=== PATIENT | male | born 1985 | race Caucasian/White ===

== ENCOUNTER 2023-01-03 12:02 | Emergency (ER) | payer OTHER ==
[2023-01-03 12:23] VITALS: BP 131/71; O2SAT 98
--- NOTE | 2023-01-03 13:13 | XRAY Report ---
PROCEDURE: Hip w/Pelvis 2-3V LT INDICATIONS: pain TECHNIQUE: AP pelvis with lateral view(s) of the left hip(s). COMPARISON: None. FINDINGS: Bones: No fractures or dislocations. No evidence of avascular necrosis of femoral head. No suspiciou s bony lesions. Soft tissues: No suspicious soft tissue calcifications or masses. IMPRESSION: No acute left hip fracture or dislocation. No evidence of avascular necrosis. Reviewed by: Isaac Arauz MD on 01/03/2023 1:11 PM PST Approved by: Isaac Arauz MD on 01/03/2023 1:11 PM PST Station ID: [id number]
--- NOTE | 2023-01-03 14:10 | ED Physician Documentation ---
PD HPI LOWER EXT INJURY - Stated complaint Stated Complaint: LT HIP PX - Chief complaint Chief Complaint: Ext Problem - History obtained from History obtained from: Patient - History of Present Illness PD HPI LOW EXT INJURY LOCATION: Left, Hip - Additional information Additional information: Patient presents with left hip pain for the last 4 months. No known injury. He has been seen by his [place] PCP and started on physical therapy and ibuprofen but states it is not getting better. 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 Has not noticed any swelling, no erythema, no numbness or tingling in the groin or down the leg. He has not had any new injuries, no falls or trauma to the area. Has not had any swelling in the leg, no back issues, no bowel or bladder changes. No fever or chills. PD PAST MEDICAL HISTORY - Past Medical History Past Medical History: Yes Psych: Anxiety - Past Surgical History Past Surgical History: Yes General: Other Ortho: Other - Allergies Allergies/Adverse Reactions: Allergies Allergy/AdvReac Type Severity Reaction Status Date / Time No Known Drug Allergies Allergy Verified 01/03/23 12:10 - Social History Does the pt smoke?: No Smoking Status: Former smoker Does the pt drink ETOH?: No Does the pt have substance abuse?: No - Immunizations Immunizations are current?: Yes - POLST Patient has POLST: No PD ED PE NORMAL - Vitals Vital signs reviewed: Yes - General General: Alert and oriented X 3 - Back Back: No CVA TTP, No spinal TTP - Derm Derm: Normal color, Warm and dry, No rash - Extremities Extremities: No deformity, No tenderness to palpate, Normal ROM s pain, No edema, No calf tenderness / cord Results - Vitals Vitals: Vital Signs - 24 hr 01/03/23 12:11 Temperature 36.5 C Heart Rate 73 Respiratory 16 Rate Blood Pressure 131/71 H O2 Saturation 98 Oxygen O2 Source Room air - Rads (name of study) No standard instances Relevant Findings:: Final report received, See rad report PD Medical Decision Making - ED course Complexity details: reviewed results, re-evaluated patient, considered differential, d/w patient ED course: 37-year-old male presented with left hip pain as described in HPI. It is been present for about 4 months, comes and goes, not relieved by PT and ibuprofen. The patient has seen his PCP for this and I encouraged him to follow back up with his PCP, he may need a referral to Ortho or MRI likely before that. His x- ray today is negative and there is no indication for emergent MRI today. Other no signs of infection or swelling. The patient may have a labral tear or a trochanteric bursitis or another intra-articular issue that is causing him the pain but it does not appear to be an emergent condition at this time. Patient was encouraged to try to rest the hip for a week or 2 if possible and a note was provided for work, he can take ibuprofen and Tylenol, and we discussed ongoing physical therapy exercises. Return precautions reviewed if any new or worsening symptoms. Departure - Departure Disposition: 01 Home, Self Care Clinical Impression: Left hip pain Condition: Good Instructions: Exercise Lower Body Hip Flexor, Trochanteric Bursitis, Iliotibial Band Stretch Comments: The cause of your hip pain is not clear. Your xray is negative and there are no signs of bony injury or dislocation. There are many hip problems that are not seen on xray such as labral injury, trochanteric bursitis, and chronic use injuries. You may need to have an MRI but this does not need to be done emerg ency and can be scheduled as an outpatient through your primary doctor as needed. Continue physical therapy. If there is the possibility of you doing "light duty" this may be helpful for a period of time to allow your hip to rest and heal. Forms: PCP List, Activity restrictions Discharge Date/Time: 01/03/23 14:15
== END 2023-01-03 14:15 | disposition home or self-care (01) ==
LOC: ED 12:02
DX: M25.552 Pain in left hip (principal); Z87.891 Personal history of nicotine dependence
CPT/HCPCS: 99283

== ENCOUNTER 2023-01-18 10:16 | Outpatient (CLI) | payer OTHER ==
--- NOTE | 2023-01-18 14:50 | MRI Report ---
PROCEDURE: HIP WO - LT INDICATIONS: LEFT HIP PAIN TECHNIQUE: Noncontrast coronal T1 spin echo and STIR through the bony pelvis. Coronal and axial T2 fast spin ec ho with fat saturation, sagittal T1 spin echo, and oblique axial T2 fast spin echo with fat saturatio n through the hip. COMPARISON: Left hip radiograph dated 01/03/2023. FINDINGS: Image quality: Excellent. Bones and joints: There is no marrow edema. No intraosseous lesions or fractures. No avascular necr osis of the femoral heads. The visualized lower lumbar spine appears normally aligned. Tendons: Low-grade partial-thickness involving distal left gluteus medius tendon at its insertion on greater trochanter is seen. Distal left gluteus minimus tendinosis is also seen. The iliopsoas tendon appears intact, without adjacent bursal fluid collections. Mild tendinosis involving origins of hams tring tendons at ischial tuberosity. Labrum and cartilage: r there is fraying of superior anterior labrum at 12 to 1:00 position suggesti ve of subtle superior anterior labral tear.. Cartilage surface of the femoral head appears of normal thickness. The alpha angle of the femur is within normal limits at less than 55 degrees. Soft tissues: Visualized muscles demonstrate normal bulk and internal signal. The proximal sciatic neurovascular bundle appears normal adjacent to the hamstring tendons. No free pelvic fluid. Bladde r wall thickness is normal. Genitourinary structures and bowel loops appear normal where visualized. IMPRESSION: 1. Finding is concerning for subtle superior anterior left hip labral tear at 12 to 1:00 position. 2. No marrow edema. No fracture or dislocation. No evidence of avascular necrosis of femoral head. 3. Low-grade partial-thickness involving distal left gluteus medias tendon at its insertion on greate r trochanter. Mild distal left gluteus minimus tendinosis. Tendinosis involving hamstring tendon orig ins at ischial tuberosity. Reviewed by: Isaac Arauz MD on 01/18/2023 2:49 PM PST Approved by: Isaac Arauz MD on 01/18/2023 2:49 PM PST Station ID: [id number]
== END 2023-01-18 10:17 | disposition home or self-care (01) ==
LOC: DI 10:16
PROVIDERS: ATTEND Nurse Practitioner Family
DX: M25.552 Pain in left hip (principal); M67.854 Other specified disorders of tendon, left hip

== ENCOUNTER 2023-03-04 10:05 | Outpatient (CLI) | payer OTHER ==
--- NOTE | 2023-03-04 10:40 | Sleep Patient Instructions ---
Sleep Center Visit Summary - Patient Visit Information Reason for Visit: Initial consult for evaluation of sleep disordered breathing and other sleep issues. - Patient Instructions Instructions Attached: Sleep Study Additional Instructions: You will be completing a sleep study, either an in-lab polysomnography (PSG) or home sleep study (HST). You will follow-up in the sleep care office after the sleep study is completed to hear the results and talk about therapy, if needed. You will be called by our office staff to schedule this appointment, but you may contact us with any questions. - Clinic Information Contact: [facility] [address] [place] [address] [email or web address] T: [phone]
--- NOTE | 2023-03-04 10:45 | SLEEP CARE CONSULTATION ---
Information from patient questionnaire entered by Anatoly Cordoba. I have reviewed and concur with the information entered by Anatoly Cordoba. This document represents the service I personally performed and the decisions made by me, Lisbet Wagner ARNP. History of Present Illness Service Date and Time: 03/04/2023 1005 Reason for Visit: New patient Chief Complaint: reports: Unrefreshed sleep, Snoring, Observed pauses in breathing, Fatigue, Frequent awakenings at night Date of Onset: 14 years Usual bedtime: 2100 Time it takes to fall asleep: I don't know Snores at night: Yes Observed to quit breathing while asleep: Yes Sleeps alone due to snoring: No Number of times waking at night: 1-4 Reasons for waking at night: reports: Other (Unknown reason). denies: Choking, Snoring, Gasping for air Toss, Turn, or Twitch while sleeping: Yes Recalls having dreams: Yes (Yes and no) Usually gets out of bed at: Between 0530 - 0630 Feels refreshed in the morning: No (feels groggy) Morning headache: No Sleepy or fatigued during the day: Yes (has unintentional naps when he is off, 1-2 times on weekends) Ever fallen asleep while driving: No Takes day naps: No Dreams during day naps: Yes (Yes and no) Prior sleep studies: No Additional HPI information: I had the pleasure of seeing PEARL QUIROZ today regarding the possibility of him having a sleep disorder. His current complaints are fatigue, frequent night awakenings, observed pauses in breathing, snoring and unrefreshed sleep. He says his and other roommate has told him that he stopped breathing at night and loud snoring. His tries to get to sleep before him to be able to get to sleep. He says he is never fully rested when he gets up in the morning and it takes a while to feel awake in the mornings. He states he has been on to have some unintentional naps on the weekends but never falls asleep at work. 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 Patient is and lives in [place]. Have you smoked in the past 12 months: Yes (Vapes daily) Cigarettes per day (20/pack): 5 Years of smokin Quit date: 2022 Smoking Pack Years: 2.0 Alcohol use: No Caffeine use: Yes Caffeine amount and frequency: 2-4 cups coffee daily Family History Family history of sleep disordered breathing: No Allergies and Home Medications Known drug allergies: No Drug allergies reviewed: Yes Home medication list reviewed: Yes Allergy and home medication list: Allergies No Known Drug Allergies Allergy (Verified 03/02/23 14:06) Medications: Sertraline 150 mg daily, at night Bupropion XL 300 mg, in morning daily Hydroxyzine 10 mg, prn Meloxicam 15 mg, 1/2 pill, daily Review of Systems Weight gain over past 5 years: 20 Cardiovascular: denies: high blood pressure Gastrointestinal: denies: heartburn Neurological: denies: headaches Psychiatric: reports: anxiety Ear/Nose/Throat: reports: wisdom teeth removed. denies: tonsillectomy Musculoskeletal: reports: other (Hip) Physical Exam Vital signs obtained and entered by: Lisbet Edmondson NP Blood Pressure: 149/85 Cuff size: regular (right arm) Heart Rate: 73 O2 Saturation: 98 Height: 5 ft 11 in Weight: 230 lb 3.2 oz Body Mass Index: 32.1 BMI Classification: Obese Neck circumference: 16.5 (inches) Mouth and throat: narrow oropharynx Soft palate: long Hard palate: normal Uvula: normal Uvula visualization: 25% Mallampati Class III Tongue: enlarged in size with teeth james on lateral edges Tonsils: 1+ Neck: normal w/o lymphadenopathy or thyromegaly Heart: regular rate and rhythm Lungs: clear bilaterally Impression and Plan 1. Suspected Obstructive Sleep Apnea-Hypopnea Syndrome, as suggested by a history of loud and irregular snoring, observed cessation of breath while asleep, frequent awakening during the night, unrefreshed sleep, and excessive daytime sleepiness. Narrow oropharynx and obesity are common predisposing factors for obstructive sleep apnea-hypopnea syndrome. I recommend proceeding to polysomnography to confirm the diagnosis and to assess severity. If the patient has significant sleep disordered breathing, a manual CPAP titration study will also be performed to find the optimal treatment pressure. I informed the patient of what the sleep studies involve and after some discussion, obtained agreement to proceed. The pathophysiology of obstructive sleep apnea-hypopnea syndrome was discussed with the patient and health risks of cardiovascular and cerebrovascular disease if not treated. Risks of drowsy driving discussed in detail and patient advised to avoid long distance driving and to focus puller at the first sign of drowsiness. Patient agreed to plan. * Schedule polysomnography * Avoid long distance driving or driving when feeling sleepy. * Avoid alcohol, sedative and muscle relaxant around bedtime. * Attempt to lose weight. * Review instructions provided by trained office staff on how to prepare for the sleep study. * Return for follow-up after sleep study completed. Counseling Topics: Weight loss health impact Plan: PSG/HST Visit Type: In Office Location of Provider: Office Time Spent with Patient (minutes): 31 Provider Statement: I spent 100% of the Face to Face Visit with the patient with greater than 50% spent counseling the patient and coordination of care.
[2023-03-04 10:50] VITALS: BP 149/85; O2SAT 98
== END 2023-03-04 10:06 | disposition home or self-care (01) ==
LOC: SC 10:05
PROVIDERS: ATTEND Nurse Practitioner Family
DX: R06.83 Snoring (principal); G47.8 Other sleep disorders; R06.81 Apnea, not elsewhere classified; G47.10 Hypersomnia, unspecified; R53.83 Other fatigue; E66.9 Obesity, unspecified; Z68.32 Body mass index [BMI] 32.0-32.9, adult; F17.290 Nicotine dependence, other tobacco product, uncomplicated
CPT/HCPCS: 99203; 99212

== ENCOUNTER 2023-03-15 19:32 | Outpatient (CLI) | payer OTHER | END 2023-03-15 19:33 | disposition home or self-care (01) | LOC: SC 19:32 | PROVIDERS: ATTEND Nurse Practitioner Family | DX: G47.8 Other sleep disorders (principal) | CPT/HCPCS: 95810 ==

== ENCOUNTER 2023-03-22 08:47 | Outpatient (CLI) | payer OTHER ==
--- NOTE | 2023-03-22 09:30 | Sleep Patient Instructions ---
Sleep Center Visit Summary - Patient Visit Information Reason for Visit: Sleep study follow-up - Patient Instructions Instructions Attached: CPAP Additional Instructions: You are being started on CPAP therapy with pressure setting at 4-15 cmH2O. You will need to call the sleep care office to set up your follow up once you have your APAP machine and we will schedule a visit to check compliance and response to therapy at that time. You may call the office with any concerns about pressure feeling too low or too much for adjustment, if needed. You should contact DME supplier for any questions or concerns about mask or equipment. Please call office to schedule a follow up appointment in the sleep care office one month after obtaining new device. - Clinic Information Contact: [facility] [address] [place] [address] [email or web address] T: [phone]
--- NOTE | 2023-03-22 09:33 | SLEEP CARE CONSULTATION ---
Information from patient questionnaire entered by Maegan Flor. I have reviewed and concur with the information entered by Maegan Flor. This document represents the service I personally performed and the decisions made by me, Lisbet Wagner ARNP. History of Present Illness Service Date and Time: 03/22/2023 08 Initial [place] Sleepiness Scale score: 14 Current [place] Sleepiness Scale score: 13 Additional HPI information: PEARL QUIROZ returns for follow up and results of the recently performed polysomnography. The sleep study showed mild upper airway resistance syndrome with an average AHI of 3.1 with RDI 11.2 and merly oxygen saturation of 89%. I explained the pathophysiology behind obstructive sleep apnea. We then spent quite a bit of time discussing different treatment options. For mild obstructive sleep apnea, surgery and oral appliance are alternatives to nasal CPAP therapy but in moderate or severe cases, nasal CPAP is the most effective and reliable treatment. I reviewed the impact of weight changes on sleep apnea and strongly recommended losing weight. After some discussion, the patient opted to go with the nasal CPAP therapy. Nasal autoCPAP set at 4-15 cmH20 will be ordered with rationale explained. A manual titration study will be ordered if unable to find optimal pressure with office adjustments. I explained how CPAP machine works and what to expect when using the machine. Using CPAP every night in order to get used to it was emphasized. Patient advised to put CPAP mask on before getting into bed so as not to fall asleep without CPAP. To assist acclimation to CPAP use, it could also be used for a short time during day while reading or watching TV. The patient was instructed to call the CPAP supplier to discuss any mechanical problem that may occur. If the mask given is uncomfortable or is difficult to keep on through the night even with adjustment, contact the CPAP supplier as many will replace with another mask style if notified before 30 days. If snoring or perceives is not getting enough air or too much air from the machine, notify this office. Patient does not drink alcohol. Patient was cautioned about risks of drowsy driving until sleepiness symptoms resolve. Patient denies drowsy driving. Sleep Study - Results Type of Sleep Study: Polysomnography (COMPLETED 03/15/23) Prior sleep studies: No Polysomnography/Home Sleep Study results: IMPRESSION: The quality of the study is good. The patient had normal sleep efficiency. The sleep architecture was abnormal for sleep fragmentation and reduced amount of time spent in REM and slow wave sleep (N3). Respiratory monitoring showed evidence of upper airway resistance syndrome (AHI = 3.1; RDI = 11.2) associated with frequent arousals, oxyhemoglobin desaturation and minimal hypoxia (merly oxygen saturation of 89%). The respiratory events occurred almost exclusively during supine sleep (supine AHI = 6.9; non-supine = 1.55). Snore was moderate in intensity. There was no significant periodic leg movement of sleep. Cardiac rhythm was normal sinus rhythm without significant arrhythmia. No abnormal behavior (parasomnia) observed during the night. Allergies and Home Medications Known drug allergies: No Drug allergies reviewed: Yes Home medication list reviewed: Yes (no changes) Allergy and home medication list: Allergies No Known Drug Allergies Allergy (Verified 03/21/23 12:55) Review of Systems Review of systems same as previous: Yes (no changes) Physical Exam Vital signs obtained and entered by: LISBET WHITTAKER-Dimas Blood Pressure: 137/75 Cuff size: regular (left arm) Heart Rate: 75 O2 Saturation: 98 Height: 5 ft 11 in Weight: 235 lb 9.6 oz Body Mass Index: 32.8 BMI Classification: Obese Impression and Plan 1. Upper Airway Resisitance Syndrome, mild, with lowest oxygen saturation of 89%. Obviously this is the cause of the patients symptoms of unrefreshed sleep, and excessive daytime sleepiness. Positive pressure therapy could benefit anxiety. As mentioned above, the patient will be started on nasal autoCPAP therapy with pressure set at 4-15 cmH2O. A manual titration study will be completed if unable to find optimal treatment pressure with office adjustments. Compliance guidelines also reviewed. A copy of compliance guidelines will be given for reference at check out. Because the apnea is more severe supine, I instructed to avoid sleeping supine using pillow positioning until able to start CPAP use. 2. Obesity, unspecified. Currently patients BMI is 32.8. Obesity increases the risk of apnea, CPAP pressure requirements and overall health risks especially cardiovascular and diabetes. Thus patient is advised to lose weight. * Nasal auto CPAP therapy, pressure at 4-15 cmH2O. * Attempt to lose weight. * Avoid alcohol consumption near bedtime. * Avoid supine sleep until using CPAP. * The patient is again cautioned about driving until sleepiness completely resolves. * Return one month after CPAP obtained. I will assess response to therapy and compliance at that time. Counseling Topics: Sleeping position, Weight loss health impact Prescriptions: Auto CPAP Visit Type: In Office Time Spent with Patient (minutes): 23 Provider Statement: I spent 100% of the Face to Face Visit with the patient with greater than 50% spent counseling the patient and coordination of care.
[2023-03-22 09:35] VITALS: BP 137/75; O2SAT 98
== END 2023-03-22 08:48 | disposition home or self-care (01) ==
LOC: SC 08:47
PROVIDERS: ATTEND Nurse Practitioner Family
DX: G47.8 Other sleep disorders (principal); E66.9 Obesity, unspecified; Z68.32 Body mass index [BMI] 32.0-32.9, adult
CPT/HCPCS: 99212; 99213

== ENCOUNTER 2023-05-10 08:00 | Outpatient (CLI) | payer OTHER ==
--- NOTE | 2023-05-10 20:53 | XRAY Report ---
PROCEDURE: Hip 2 View LT INDICATIONS: LEFT HIP PAIN TECHNIQUE: 2 view(s) of the hip were acquired. COMPARISON: 01/03/2023 FINDINGS: Bones: No fractures or dislocations. No suspicious bony lesions. The visualized pelvic ring appear s intact. Soft tissues: No suspicious soft tissue calcifications or masses. IMPRESSION: Unremarkable hip radiographs Reviewed by: Hunter Schilling MD on 05/10/2023 7:51 PM AKDT Approved by: Hunter Schilling MD on 05/10/2023 7:51 PM AKDT Station ID: [id number]
== END 2023-05-10 23:59 | disposition home or self-care (01) ==
LOC: DI.WOS 08:00
PROVIDERS: ATTEND Physician Assistant Surgical
DX: M25.552 Pain in left hip (principal)

== ENCOUNTER 2023-05-11 15:08 | Outpatient (CLI) | payer OTHER ==
--- NOTE | 2023-05-11 15:44 | Sleep Patient Instructions ---
Sleep Center Visit Summary - Patient Visit Information Reason for Visit: First compliance follow-up - Patient Instructions Additional Instructions: You were here for follow up of CPAP therapy. You will be continued on CPAP therapy with pressure at 8-10 cmH2O. Please let us know if the pressure change is uncomfortable and we can make further adjustments of the pressure. You should follow up with sleep care in 1-2 months. You may contact us sooner for any questions or concerns. - Clinic Information Contact: [facility] [address] [place] [address] [email or web address] T: [phone]
--- NOTE | 2023-05-11 15:51 | SLEEP CARE CONSULTATION ---
Information from patient questionnaire entered by Jaye Flor. I have reviewed and concur with the information entered by Jaye Flor. This document represents the service I personally performed and the decisions made by me, Lisbet Wagner ARNP. History of Present Illness Service Date and Time: 05/11/2023 1508 Previous diagnosis: Mild, Other (Upper Airway Resistance Syndrome) AHI: 3.1 (with RDI 11.2) Reason for follow up: first compliance Equipment type: CPAP (RESMED Airsense 11, s/u 03/29/2023) Equipment obtained from: Other ([facility]; getting supplies) Mask style: Full face Mask brand: Respironics (Dreamwear, large cushion) Backup mask available: No (will keep old mask when replaced) Last cushion change: about a month Prior sleep studies: No Type of Sleep Study: Polysomnography (COMPLETED 03/15/23) HPI additional information: PEARL QUIROZ was diagnosed to have mild, AHI 3.1 with RDI 11.2, upper airway resistance syndrome and returned today for CPAP therapy first compliance follow- up. Sleep Study - Results Type of Sleep Study: Polysomnography (COMPLETED 03/15/23) Prior sleep studies: No CPAP Compliance Data - Data Reviewed with Patient Average duration of nightly device use: 5 hours 50 minutes Compliance rate %: 70 (/30 days used; 04/02/23-05/01/23; 87% in last 30 days) Current pressure setting (cmH2O): 4-15 (median 5.6, avg 8.2, max 9.6) Average residual AHI: 1 (RERA 0.2) Central apnea: 0.2 Obstructive apnea: 0.3 Hypopnea: 0.4 Average large leak: 0 L/min Subjective Missed days of use due to: reports: other (just started) Patient concerns: denies: aerophagia, mask discomfort, air blowing in eyes, mask leak noise, condensation in mask/hose, nasal congestion, dry mouth, nose, throat, epistaxis Observed to snore while using device: No Current pressure setting perceived as: comfortable (little low at first of night) On therapy, patient: reports: sleeping better, awakening more refreshed, being more awake and alert during the day, more rested overall. denies: drowsiness while driving Initial [place] Sleepiness Scale score: 14 Current [place] Sleepiness Scale score: 7 (05/11/23) Allergies and Home Medications Known drug allergies: No Drug allergies reviewed: Yes Home medication list reviewed: Yes (no changes) Allergy and home medication list: Allergies No Known Drug Allergies Allergy (Verified 05/11/23 12:11) Review of Systems Review of systems same as previous: Yes (NO CHANGE) Physical Exam Vital signs obtained and entered by: JAYE Cochran MA Blood Pressure: 138/86 (RIGHT ARM) Cuff size: regular Heart Rate: 86 O2 Saturation: 97 Height: 5 ft 11 in Weight: 240 lb 6.4 oz Body Mass Index: 33.5 BMI Classification: Obese Impression and Plan 1. Upper Airway Resistance Syndrome, mild, with good treatment compliance and good apnea control. On CPAP therapy, the patient has better sleep quality and is more rested overall. He likes the higher pressure and the pressure feels a little low at onset of CPAP therapy at night. He would prefer the pressure start at the prescribed pressure for now and he will let us know if it is too much for further adjustment. The patients pressure will be changed to autoCPAP 8-10 cmH20 to reflect pressure being used. Patient advised to contact me if pressure change is uncomfortable so that it can be adjusted. Goals for apnea control discussed. Patient's apnea severity and rationale for treatment to reduce apnea, improve sleep quality and reduce cardiovascular and cerebrovascular events was reviewed. I also reviewed the benefit of consistent device use of CPAP for anxiety. 2. Obesity, unspecified. Currently patients BMI is 33.5. Obesity increases the risk of apnea, CPAP pressure requirements and overall health risks especially cardiovascular and diabetes. Thus patient is advised to lose weight. * Change auto CPAP pressure to 8-10 cmH2O * Notify me if snoring with mask or feeling that the pressure is too much or too little * Attempt to lose weight * Call this office if any problems using CPAP * Return for follow up in 1-2 months, or sooner if concerns arise Adjust device pressure to (cmH2O): 8-10 Counseling Topics: Spare mask, Weight loss health impact Follow up with Sleep Care in: 1-2 months Visit Type: In Office Time Spent with Patient (minutes): 21 Provider Statement: I spent 100% of the Face to Face Visit with the patient with greater than 50% spent counseling the patient and coordination of care.
[2023-05-11 16:01] VITALS: BP 138/86; O2SAT 97
== END 2023-05-11 15:09 | disposition home or self-care (01) ==
LOC: SC 15:08
PROVIDERS: ATTEND Nurse Practitioner Family
DX: G47.8 Other sleep disorders (principal); E66.9 Obesity, unspecified; Z68.33 Body mass index [BMI] 33.0-33.9, adult
CPT/HCPCS: 99212; 99213

== ENCOUNTER 2023-06-24 11:31 | Outpatient (CLI) | payer OTHER ==
--- NOTE | 2023-06-24 11:59 | Sleep Patient Instructions ---
Sleep Center Visit Summary - Patient Visit Information Reason for Visit: 6-week follow-up for PAP therapy - Patient Instructions Additional Instructions: You were here for follow up of CPAP therapy. You will be continued on CPAP therapy with pressure at 8-10 cmH2O. You should follow up with sleep care in 3 months. You may contact us sooner for any questions or concerns. - Clinic Information Contact: [facility] [address] [place] [id number] [email or web address] T: [phone]
[2023-06-24 12:15] VITALS: BP 150/83; O2SAT 98
--- NOTE | 2023-06-24 12:15 | SLEEP CARE CONSULTATION ---
Information from patient questionnaire entered by Maegan Flor. I have reviewed and concur with the information entered by Maegan Flor. This document represents the service I personally performed and the decisions made by me, Lisbet Wagner ARNP. History of Present Illness Service Date and Time: 06/24/2023 1131 Previous diagnosis: Mild, Other (Upper Airway Resistance Syndrome) AHI: 3.1 (with RDI 11.2) Reason for follow up: other (6 WEEK F/U) Equipment type: CPAP (RESMED Airsense 11, s/u 03/29/2023) Equipment obtained from: Other ([facility]; getting supplies) Mask style: Full face (changing nasal cushion) Backup mask available: No Last cushion change: hasn't changed cushion Prior sleep studies: No Type of Sleep Study: Polysomnography (COMPLETED 03/15/23) HPI additional information: PEARL QUIROZ was diagnosed to have mild, AHI 3.1 with RDI 11.2, upper airway resistance syndrome and returned today for CPAP therapy six week follow-up. Sleep Study - Results Type of Sleep Study: Polysomnography (COMPLETED 03/15/23) Prior sleep studies: No CPAP Compliance Data - Data Reviewed with Patient Average duration of nightly device use: 4 HRS 47 MINS Compliance rate %: 59 (05/16/23-06/21/23; 35/37 days used) Current pressure setting (cmH2O): 8-10 Average residual AHI: 0.7 Central apnea: 0.2 Obstructive apnea: 0.3 Hypopnea: 0.1 Average large leak: 0 L/min Subjective Missed days of use due to: reports: mask issues (took off without knowing), other (had to unplug machine a couple times to reset, not recording data, good now) Patient concerns: reports: mask discomfort. denies: aerophagia, air blowing in eyes, mask leak noise, condensation in mask/hose, nasal congestion, dry mouth, nose, throat, epistaxis Observed to snore while using device: No Current pressure setting perceived as: comfortable On therapy, patient: reports: sleeping better, awakening more refreshed, being more awake and alert during the day, more rested overall. denies: drowsiness while driving Initial [place] Sleepiness Scale score: 14 Current [place] Sleepiness Scale score: 7 Allergies and Home Medications Known drug allergies: No Drug allergies reviewed: Yes Home medication list reviewed: Yes (no changes) Allergy and home medication list: Allergies No Known Drug Allergies Allergy (Verified 06/22/23 11:04) Review of Systems Review of systems same as previous: Yes (no changes) Physical Exam Vital signs obtained and entered by: LISBET HOLLIS Blood Pressure: 150/83 Cuff size: long (right arm) Heart Rate: 70 O2 Saturation: 98 Height: 5 ft 11 in Weight: 243 lb 9.6 oz Body Mass Index: 34.0 BMI Classification: Obese Impression and Plan 1. Obstructive Sleep Apnea-Hypopnea Syndrome, mild, with fair treatment compliance good apnea control. On CPAP therapy, the patient has better sleep quality and is more rested overall. He has been having more problems with the full face mask and talked to his DME about a mask change to a nasal cushion. He is not eligible until later for the AirFit N20 mask change. I fit him to a Mirage FX standard mask set up to try at home to help increase his compliance and mask comfort. He says that it has been a positive experience with the CPAP and has noted changes in his mood and energy during the day. He is feeling rested. Patient's apnea severity and rationale for treatment to reduce apnea, improve sleep quality and reduce cardiovascular and cerebrovascular events was reviewed. I also reviewed the benefit of consistent device use of CPAP for anxiety. 2. Obesity, unspecified. Currently patients BMI is 34. Obesity increases the risk of apnea, CPAP pressure requirements and overall health risks especially cardiovascular and diabetes. Thus patient is advised to lose weight. * Continue auto CPAP pressure at 8-10 cmH2O * Try the nasal cushion mask, ResMed Mirage FX * Notify me if snoring with mask or feeling that the pressure is too much or too little * Attempt to lose weight * Call this office if any problems using CPAP * Return for follow up in 3 months, or sooner if concerns arise Mask provided: Yes Counseling Topics: Spare mask, Weight loss health impact Follow up with Sleep Care in: 3 months Visit Type: In Office Time Spent with Patient (minutes): 29 Provider Statement: I spent 100% of the Face to Face Visit with the patient with greater than 50% spent counseling the patient and coordination of care.
== END 2023-06-24 11:32 | disposition home or self-care (01) ==
LOC: SC 11:31
PROVIDERS: ATTEND Nurse Practitioner Family
DX: G47.33 Obstructive sleep apnea (adult) (pediatric) (principal); E66.9 Obesity, unspecified; Z68.34 Body mass index [BMI] 34.0-34.9, adult
CPT/HCPCS: 99212; 99213

== ENCOUNTER 2023-09-23 11:22 | Outpatient (CLI) | payer OTHER ==
--- NOTE | 2023-09-23 11:45 | Sleep Patient Instructions ---
Sleep Center Visit Summary - Patient Visit Information Reason for Visit: 3-month follow-up - Patient Instructions Additional Instructions: You were here for follow up of CPAP therapy. You will be continued on CPAP therapy with pressure at 8-10 cmH2O. You should follow up with sleep care in 3 months. You may contact us sooner for any questions or concerns. - Clinic Information Contact: [facility] [address] [place] [address] [email or web address] T: [phone]
--- NOTE | 2023-09-23 11:51 | SLEEP CARE CONSULTATION ---
Information from patient questionnaire entered by Jaye Flor. I have reviewed and concur with the information entered by Jaye Flor. This document represents the service I personally performed and the decisions made by , Lisbet Wagner ARNP. History of Present Illness Service Date and Time: 09/23/2023 112 Previous diagnosis: Mild, Other (UPPER AIRWAY RESISTANCE SYNDROME) AHI: 3.1 (with RDI 11.2) Reason for follow up: three month (F/U) Equipment type: CPAP (ResMed Airsense 11, s/u 03/29/2023) Equipment obtained from: Other ([facility]; getting supplies) Mask style: Nasal (switches betw N20 and Mirage FX cushions) Backup mask available: Yes Last cushion change: 3 months alternating Prior sleep studies: No Type of Sleep Study: Polysomnography (COMPLETED 03/15/23) HPI additional information: PEARL QUIROZ was diagnosed to have mild, AHI 3.1 with RDI 11.2, upper airway resistance syndrome and returned today for CPAP therapy three month follow-up. Sleep Study - Results Type of Sleep Study: Polysomnography (COMPLETED 03/15/23) Prior sleep studies: No CPAP Compliance Data - Data Reviewed with Patient Average duration of nightly device use: 5 HRS 55 MINS Compliance rate %: 71 (06/22/23-09/19/23; 81/90 days used) Current pressure setting (cmH2O): 8-10 Average residual AHI: 0.6 (RERA 0.1) Central apnea: 0.2 Obstructive apnea: 0.2 Hypopnea: 0.2 Average large leak: 0 L/min Subjective Missed days of use due to: reports: mask issues (fitting on nose) Patient concerns: reports: mask discomfort, nasal congestion (rare). denies: aerophagia, air blowing in eyes, mask leak noise, condensation in mask/hose, dry mouth, nose, throat, epistaxis Observed to snore while using device: No Current pressure setting perceived as: comfortable On therapy, patient: reports: sleeping better, awakening more refreshed, being more awake and alert during the day, more rested overall. denies: drowsiness while driving Initial [place] Sleepiness Scale score: 14 Current [place] Sleepiness Scale score: 5 (09/23/23) Allergies and Home Medications Known drug allergies: No Drug allergies reviewed: Yes Home medication list reviewed: Yes (no changes) Allergy and home medication list: Allergies No Known Drug Allergies Allergy (Verified 06/22/23 11:04) Review of Systems Review of systems same as previous: Yes (NO CHANGE) Physical Exam Vital signs obtained and entered by: JAYE Cochran MA Blood Pressure: 125/81 (RIGHT ARM) Cuff size: regular Heart Rate: 97 O2 Saturation: 98 Height: 5 ft 11 in Weight: 240 lb Body Mass Index: 33.5 BMI Classification: Obese Impression and Plan 1. Upper Airway Resistance Syndrome, mild, with good treatment compliance and good apnea control. On CPAP therapy, the patient has better sleep quality and is more rested overall. He states he has been getting the best sleep when using his CPAP. He has been using nasal cushion mask, switching between the Resmed N20 and the Mirage FX nasal cushion masks. He had some struggles with sealing but found out how to reseal mask with adjustments and it doing better with the seal. He has significant improvement of his sleep apnea and is satisfied with current pressure/therapy. He would like to follow up in 3 months. Patient's apnea severity and rationale for treatment to reduce apnea, improve sleep quality and reduce cardiovascular and cerebrovascular events was reviewed. I also reviewed the benefit of consistent device use of CPAP for anxiety. 2. Obesity, unspecified. Currently patients BMI is 33.5. Obesity increases the risk of apnea, CPAP pressure requirements and overall health risks especially cardiovascular and diabetes. Thus patient is advised to lose weight. * Continue auto CPAP pressure at 8-10 cmH2O * Notify me if snoring with mask or feeling that the pressure is too much or too little * Attempt to lose weight * Call this office if any problems using CPAP * Return for follow up in 3 months, or sooner if concerns arise Counseling Topics: Spare mask, Weight loss health impact Follow up with Sleep Care in: 3 months Visit Type: In Office Time Spent with Patient (minutes): 20 Provider Statement: I spent 100% of the Face to Face Visit with the patient with greater than 50% spent counseling the patient and coordination of care.
[2023-09-23 12:01] VITALS: BP 125/81; O2SAT 98
== END 2023-09-23 11:23 | disposition home or self-care (01) ==
LOC: SC 11:22
PROVIDERS: ATTEND Nurse Practitioner Family
DX: G47.8 Other sleep disorders (principal); E66.9 Obesity, unspecified; Z68.33 Body mass index [BMI] 33.0-33.9, adult
CPT/HCPCS: 99212; 99213